=== PATIENT | male | born 1990 | race Caucasian/White ===

== ENCOUNTER 2016-12-11 22:12 | Emergency (ER) | payer OTHER ==
[~2016-12-11] VITALS: Ht 182.9 cm; Wt 125.0 kg
[2016-12-11] MEDS ORDERED: NO HOME MEDICATION XX (22:23)
== END 2016-12-11 23:15 ==
LOC: EDMED 22:12
DX: S69.91XA Unspecified injury of right wrist, hand and finger(s), initial encounter (principal); Z23 Encounter for immunization; W31.9XXA Contact with unspecified machinery, initial encounter; Y92.69 Other specified industrial and construction area as the place of occurrence of the external cause; Y99.0 Civilian activity done for income or pay